=== PATIENT | male | born 1985 | race Hispanic/Latino ===

== ENCOUNTER 2021-07-15 12:27 | Inpatient (IN) | payer OTHER ==
[~2021-07-15] VITALS: Ht 172.7 cm; Wt 100.0 kg
[2021-07-15] MEDS ORDERED: MODA200T15 PO (12:59)
[2021-07-15] MEDS ORDERED: PROZ10CA7 PO (12:59)
[2021-07-15 13:26] LABS: HEMATOCRIT 40.9 % (42.0-52.0); HEMOGLOBIN 14.3 g/dl (13.5-17.5); MEAN CORPUSCULAR HEMOGLOBIN 31.2 pg (27.0-33.0); MEAN CORPUSCULAR VOLUME 89.1 fl (80.0-96.0); PLATELET COUNT, AUTOMATED 137 10^3/uL (150-450); RED BLOOD COUNT 4.59 10^6/uL (4.30-6.10)
[2021-07-15 14:04] LABS: ACETAMINOPHEN LEVEL < 2.0 UG/ML (10.0-30.0); ALBUMIN 4.4 GM/DL (3.2-5.2); ALT/SGPT 24 U/L (12-78); BILIRUBIN,DIRECT 0.1 MG/DL (0.0-0.2); BILIRUBIN,TOTAL 0.4 MG/DL (0.2-1.0); BLOOD UREA NITROGEN 20 MG/DL (7-18); CALCIUM LEVEL 9.4 MG/DL (8.5-10.1); CARBON DIOXIDE LEVEL 32 MEQ/L (21-32); CHLORIDE LEVEL 106 MEQ/L (98-107); CREATININE FOR GFR 0.86 MG/DL (0.70-1.30); ETHYL ALCOHOL (ETHANOL) < 0.003 % (0.000-0.010); GLOMERULAR FILTRATION RATE > 60.0 (>60); GLUCOSE, FASTING 97 MG/DL (70-100); POTASSIUM SERUM 3.9 MEQ/L (3.5-5.1); SALICYLATE LEVEL < 1.7 MG/DL (5.0-30.0); SODIUM LEVEL 143 MEQ/L (136-145); THYROID STIMULATING HORMONE 0.373 uIU/ML (0.358-3.740); TOTAL PROTEIN 7.5 GM/DL (6.4-8.2)
[2021-07-15 14:06] LABS: RSV AMPLIFICATION NEGATIVE (NEGATIVE)
[2021-07-15 14:07] LABS: AMPHETAMINES LEVEL URINE NEGATIVE (NEGATIVE); BARBITURATES URINE NEGATIVE (NEGATIVE); BENZODIAZEPINES URINE NEGATIVE (NEGATIVE); CANNABINOIDS URINE NEGATIVE (NEGATIVE); COCAINE METABOLITE URINE NEGATIVE (NEGATIVE); METHADONE URINE NEGATIVE (NEGATIVE); OPIATES URINE NEGATIVE (NEGATIVE); PHENCYCLIDINE URINE NEGATIVE (NEGATIVE)
[2021-07-15] MEDS ORDERED: HOME MED LIST COMPLETE! XX SCH (16:55)
[2021-07-16] MEDS ORDERED: MODAFINIL 100 MG TABLET PO SCH (09:00)
[2021-07-16] MEDS ORDERED: FLUoxetine 10 MG CAP PO SCH (09:00)
[2021-07-16] MEDS ORDERED: MOM 30ML SUSPENSION UDC PO PRN (12:50)
[2021-07-16] MEDS ORDERED: IBUPROFEN 400MG TAB PO PRN (12:50)
[2021-07-16] MEDS ORDERED: MAALOX 30 ML SUSP *UDC PO PRN (12:50)
[2021-07-16] MEDS ORDERED: diphenhydrAMINE 25MG CAP PO PRN (12:50)
[2021-07-16] MEDS ORDERED: OLANZapine ORAL DISINTEGRATING TAB 5MG PO PRN (12:50)
[2021-07-16] MEDS: NICOTINE 21MG/24HR 1 EA TRANSDERMAL TD SCH (16:15)
[2021-07-16 17:32] VITALS: BP 135/85
[2021-07-17 06:29] VITALS: BP 163/95
[2021-07-17] MEDS: FLUoxetine 10 MG CAP PO SCH (08:23)
[2021-07-17] MEDS: NICOTINE 21MG/24HR 1 EA TRANSDERMAL TD SCH (08:23)
[2021-07-17 18:35] VITALS: BP 137/74
[2021-07-17] MEDS: traZODone 50 MG TAB PO PRN (20:20)
[2021-07-17] MEDS: busPIRone 5 MG TAB PO SCH (20:20)
[2021-07-18 06:55] VITALS: BP 133/67
[2021-07-18] MEDS: NICOTINE 21MG/24HR 1 EA TRANSDERMAL TD SCH (08:26)
[2021-07-18] MEDS: FLUoxetine 10 MG CAP PO SCH (08:26)
[2021-07-18] MEDS: busPIRone 5 MG TAB PO SCH ×2 (08:26→20:44)
[2021-07-18 18:30] VITALS: BP 152/85
[2021-07-18] MEDS: traZODone 50 MG TAB PO PRN (20:44)
[2021-07-19 06:49] VITALS: BP 129/75
[2021-07-19] MEDS: busPIRone 5 MG TAB PO SCH ×2 (08:34→20:24)
[2021-07-19] MEDS: ESCITALOPRAM OXALATE 10 MG TAB (LEXAPRO) PO SCH (08:34)
[2021-07-19] MEDS: NICOTINE 21MG/24HR 1 EA TRANSDERMAL TD SCH (08:34)
[2021-07-19 18:00] VITALS: BP 136/84
[2021-07-19] MEDS: traZODone 50 MG TAB PO PRN (20:24)
[2021-07-20 06:58] VITALS: BP 136/72
[2021-07-20] MEDS: busPIRone 5 MG TAB PO SCH ×2 (08:42→20:57)
[2021-07-20] MEDS: ESCITALOPRAM OXALATE 10 MG TAB (LEXAPRO) PO SCH (08:42)
[2021-07-20] MEDS: NICOTINE 21MG/24HR 1 EA TRANSDERMAL TD SCH (08:43)
[2021-07-20] MEDS: traZODone 50 MG TAB PO PRN (20:57)
[2021-07-21 07:12] VITALS: BP 114/76
[2021-07-21] MEDS: ESCITALOPRAM OXALATE 10 MG TAB (LEXAPRO) PO SCH (07:46)
[2021-07-21] MEDS: NICOTINE 21MG/24HR 1 EA TRANSDERMAL TD SCH (07:46)
[2021-07-21] MEDS: busPIRone 5 MG TAB PO SCH ×2 (07:46→20:24)
[2021-07-21 16:23] VITALS: BP 140/90
[2021-07-21] MEDS: traZODone 50 MG TAB PO PRN (20:24)
[2021-07-22 06:21] VITALS: BP 134/81
[2021-07-22] MEDS: busPIRone 5 MG TAB PO SCH (08:10)
[2021-07-22] MEDS: NICOTINE 21MG/24HR 1 EA TRANSDERMAL TD SCH (08:10)
[2021-07-22] MEDS: ESCITALOPRAM OXALATE 10 MG TAB (LEXAPRO) PO SCH (08:10)
[2021-07-22] MEDS: hydrOXYzine 50 MG TAB PO PRN (09:26)
[2021-07-22] MEDS ORDERED: ESCITALOPRAM OXALATE 5MG TABLET (LEXAPRO) PO ONE (09:30)
[2021-07-22 16:55] VITALS: BP 133/75
[2021-07-22] MEDS: traZODone 50 MG TAB PO PRN (20:49)
[2021-07-22] MEDS: busPIRone 10 MG TAB PO SCH (20:49)
[2021-07-23 06:36] VITALS: BP 128/70
[2021-07-23] MEDS: NICOTINE 21MG/24HR 1 EA TRANSDERMAL TD SCH (08:02)
[2021-07-23] MEDS: busPIRone 10 MG TAB PO SCH ×2 (08:02→20:05)
[2021-07-23] MEDS: ESCITALOPRAM OXALATE 10 MG TAB (LEXAPRO) PO SCH (08:03)
[2021-07-23] MEDS ORDERED: BUSP10TA PO (11:49)
[2021-07-23] MEDS ORDERED: TRAZ-252 PO (11:49)
[2021-07-23] MEDS ORDERED: HYDR-3363 PO (11:49)
[2021-07-23] MEDS ORDERED: LEXA1TAB PO (11:49)
[2021-07-23] MEDS ORDERED: NICO21PAT TD (11:49)
[2021-07-23] MEDS: hydrOXYzine 50 MG TAB PO PRN (13:32)
[2021-07-23 16:55] VITALS: BP 140/89
[2021-07-23] MEDS: traZODone 50 MG TAB PO PRN (20:05)
[2021-07-24 07:20] VITALS: BP 135/62
[2021-07-24] MEDS: busPIRone 10 MG TAB PO SCH (07:51)
[2021-07-24] MEDS: ESCITALOPRAM OXALATE 10 MG TAB (LEXAPRO) PO SCH (07:51)
[2021-07-24] MEDS: NICOTINE 21MG/24HR 1 EA TRANSDERMAL TD SCH (07:53)
== END 2021-07-24 10:32 | disposition home or self-care (01) | DRG 885 ==
LOC: M ED 12:27 → M ED INP 07-16 12:50 → M PSY 07-16 16:21
PROVIDERS: ADMIT Student in an Organized Health Care Education/Training Program; ATTEND Psychiatry & Neurology Psychiatry
DX: F32.1 Major depressive disorder, single episode, moderate (principal); R45.851 Suicidal ideations; F17.220 Nicotine dependence, chewing tobacco, uncomplicated; F45.22 Body dysmorphic disorder; Z63.4 Disappearance and death of family member; Z79.899 Other long term (current) drug therapy; Z20.822 Contact with and (suspected) exposure to COVID-19